=== PATIENT | female | born 1940 | race Caucasian/White ===

== ENCOUNTER 2018-08-07 17:24 | Inpatient (IN) | payer MEDICARE, BC ==
[2018-08-07] MEDS ORDERED: NS 0.9% 1000 ML** 1,000 ML IV ONE (21:22)
--- NOTE | 2018-08-07 21:33 | ED ---
Altered Mental Status - HPI Summary HPI Summary: Pt is a 77 y/o F presenting to the ED with a chief complaint of altered mental status. Per the pts daughter, she has been very fatigued since 08/05/18. Daughter states pt has been sleeping almost constantly since 08/05/18. She states she thought she was coming down with a cold because she had body aches and general fatigue. The pt currently denies fever, myalgia, CP, abd pain, N/V, urinary symptoms. The pts daughter reports the pt has had mild SOB with exertion and decreased appetite. She denies the pt having any one-sided weakness or facial droop. She also notes that she thought the pt's blood pressure was low earlier. Pt has hx of DE with a triple bypass surgery done in 1996, and DMII requiring insulin but she has not taken her insulin recently. She states her blood sugar has been normal recently but she did not check it today. Pt did not eat alot today. Vital signs while in room: HR 65bpm, SaO2 93% on room air, 25 respirations per minute, and BP of 130/72. - History Of Current Complaint Chief Complaint: EDGeneral Stated Complaint: LOW BLOOD PRESSURE/WEAKNESS PER PT Time Seen by Provider: 08/07/18 21:21 Hx Obtained From: Patient, Family/Servicer Travel Trailers - daughter Onset/Duration: Gradually Timing: Constant, Lasting Days Severity Initially: Mild Severity Currently: Mild Character: Lethargy Aggravating Factor(s): Nothing Alleviating Factor(s): Nothing Associated Signs And Symptoms: Positive: Negative - Allergies/Home Medications Allergies/Adverse Reactions: Allergies Allergy/AdvReac Type Severity Reaction Status Date / Time No Known Allergies Allergy Verified 08/07/18 17:37 Home Medications: Home Medications Aspirin EC TAB* [Ecotrin EC Low Dose 81 MG*] 81 mg PO DAILY 08/07/18 [History Confirmed 08/07/18] Atorvastatin* [Lipitor*] 40 mg PO DAILY 08/07/18 [History Confirmed 08/07/18] Blake/D3/Mag11/Zinc/Silviculture Teacher/Jaguar/Bor [Caltrate 600+D Plus] 1 tab PO DAILY 08/07/18 [ History Confirmed 08/07/18] Fenofibrate 40 mg PO DAILY 08/07/18 [History Confirmed 08/07/18] Glucosamine/D3/Boswellia Teresita [Osteo Bi-Flex Tablet] 1 each PO DAILY 08/07/18 [ History Confirmed 08/07/18] Insulin Degludec [Tresiba] 65 unit SQ QAM 08/07/18 [History Confirmed 08/07/18] Irbesartan/Hydrochlorothiazide [Irbesartan/Hydrochlorothi 150-12.5 mg] 1 tab PO DAILY 08/07/18 [History Confirmed 08/07/18] Liraglutide (NF) [Victoza (NF)] 8 mg SUBCUT QAM 08/07/18 [History Confirmed ] Metoprolol Tartrate TAB* [Lopressor TAB*] 25 mg PO BID 08/07/18 [History Confirmed 08/07/18] metFORMIN* [Glucophage 500 MG TAB *] 500 mg PO DAILY 08/07/18 [History Confirmed 08/07/18] PMH/Surg Hx/FS Hx/Imm Hx Previously Healthy: No Endocrine/Hematology History: Reports: Hx Diabetes - on insulin Cardiovascular History: Reports: Hx Coronary Artery Disease, Hx Myocardial Infarction, Other Cardiovascular Problems/Disorders - S/P CABG, 1996 History: Reports: Hx Renal Disease - Surgical History Surgical History: Yes Surgery Procedure, Year, and Place: triple bypass 1996, Infectious Disease History: No Infectious Disease History: Denies: Traveled Outside the [place] in Last 30 Days - Family History Known Family History: Positive: Cardiac Disease - Social History Lives: Alone Alcohol Use: None Hx Substance Use: No Substance Use Type: Reports: None Hx Tobacco Use: No Smoking Status (MU): Never Smoked Tobacco Review of Systems Positive: Fatigue Eyes: Negative ENT: Negative Negative: Chest Pain Positive: Shortness Of Breath - with exertion Negative: Abdominal Pain, Vomiting, Nausea Positive: no symptoms reported Negative: Myalgia Skin: Negative Neurological: Negative Psychological: Normal All Other Systems Reviewed And Are Negative: Yes Physical Exam - Summary Physical Exam Summary: Appearance: chronically ill-appearing, no pain distress, well-nourished, ambulatory Skin: Warm, color reflects adequate perfusion, dry Head: Normal Head/Face inspection, atraumatic Eyes: Conjunctiva clear, PERRL, EOMI, no nystagmus ENT: Normal inspection, No facial droop Neck: Supple, no nodes, no JVD Respiratory: Lungs clear, normal breath sounds, no respiratory distress Cardio: RRR, No murmur, pulses normal, brisk capillary refill, bigeminy on the monitor Abdomen: Soft, nontender Bowel sounds: Present Musculoskeletal: Strength Intact/ROM intact, no calf tenderness, no edema. Psychological: Normal Neuro: Alert, CN II-XII intact, Motor 5/5, muscle tone normal, Sensation intact , normal gait, no focal deficit Triage Information Reviewed: Yes Vital Signs On Initial Exam: Initial Vitals Temp Pulse Resp BP Pulse Ox 97.9 F 67 16 114/60 96 08/07/18 17:27 08/07/18 17:27 08/07/18 17:27 08/07/18 17:27 08/07/18 17:27 Vital Signs Reviewed: Yes - [place] Coma Scale Best Eye Response: 4 - Spontaneous Best Motor Response: 6 - Obeys Commands Best Verbal Response: 5 - Oriented Coma Scale Total: 15 Diagnostics - Vital Signs Vital Signs Temp Pulse Resp BP Pulse Ox 08/07/18 21:27 98.2 F 65 14 130/72 95 08/07/18 21:26 32 08/07/18 20:00 99.0 F 72 16 120/37 95 08/07/18 17:27 97.9 F 67 16 114/60 96 - Laboratory Lab Results: Lab Results 08/07/18 Range/Units 17:41 POC Glucose (mg/dL) 231 H (70-100) mg/dL Result Diagrams: 08/07/18 21:34 08/07/18 21:34 Lab Statement: Any lab studies that have been ordered have been reviewed, and results considered in the medical decision making process. - Radiology CXR Radiology Interpretation Completed By: ED Physician Summary of Radiographic Findings: poor inspiration, NAD. Pending official radiology report. - EKG 2121 Cardiac Rate: NL - 104 ST Segment: Non-Specific Ectopy: PVCs EKG Comparison: Other - no comparison Summary of EKG Findings: SR, nl AVIVCT, nl QTc, ventricular bigeminy, nonspecific ST-T wave changes, Not a STEMI. ED physician read and interpreted the EKG. 2302 Cardiac Rate: NL - 76 EKG Rhythm: Sinus Rhythm ST Segment: Non-Specific Ectopy: PVCs - ventricular bigeminy EKG Comparison: No Significant Change - c/w 2121 today Summary of EKG Findings: SR, nl AVIVCT, nl QTc, nonspecific ST-T wave changes, ventricular bigeminy, not a STEMI. ED physician read and interpreted the EKG. Re-Evaluation - Re-Evaluation First Eval Re-Evaluation Time: 22:45 Change: Unchanged Comment: Pt alert, coherent, denies chest pain, SOB. Daughter with pt. Both advised that pt will be admitted for further evaluation. Altered Mental Statu Course/Dx - Course Course Of Treatment: Pt is a 77 y/o F presenting to the ED with a chief complaint of altered mental status. Per the pts daughter, she has been very fatigued since 08/05/18, and has been sleeping alot. She states she thought she was coming down with a cold because she had bodyaches and general fatigue. The pt currently denies fever, myalgia, CP, abd pain, N/V, urinary symptoms. The pt s daughter reports the pt has had mild SOB with exertion and decreased appetite. She denies the pt having any one-sided weakness or facial droop. Pt has hx of DE with a triple bypass surgery done in 1996, and DM II requiring insulin, but she has not taken her insulin recently. She states her blood sugar has been normal recently. Vital signs while in room: HR 65bpm, SaO2 93% on room air, 25 respirations per minute, and BP of 130/72. CXR is poor inspiration , NAD. EKG at 2149 shows sinus tachycardia at 104bpm, nml AV/IV CT, nml QTc, and nml axis. Pt is in ventricular bigeminy. ED MD has reviewed and interpreted this EKG. Second EKG is SR, not a STEMI, ventricular trigeminy ED MD has reviewed and interpreted this EKG. Troponin is 0.12, verified by lab. Pt was given ASA 324mg po chewable x 1. Pt is admitted to Dr. Vanegas for further evaluation. - Diagnoses Differential Diagnosis/HQI/PQRI: CVA, Intracranial Bleed, Medication Reaction, Metabolic Disorder, TIA, Other - DE, UTI Provider Diagnoses: Ventricular bigeminy, Altered mental status, Poorly controlled diabetes mellitus, NSTEMI (non-ST elevated myocardial infarction), CKD (chronic kidney disease) stage 3, GFR 30-59 ml/min, Hyponatremia, Transaminitis - Provider Notifications Discussed Care Of Patient With: Emma Vanegas Time Discussed With Above Provider: 23:00 Instructed by Provider To: Admit As Observation - Critical Care Time Critical Care Time: 30-74 min - 30 mins Discharge - Sign-Out/Discharge Documenting (check all that apply): Patient Departure - Discharge Plan Condition: Stable Disposition: ADMITTED TO [facility] Referrals: Roni Saavedra MD [Primary Care Provider] - - Billing Disposition and Condition Condition: STABLE Disposition: Admitted to [facility] - Attestation Statements Document Initiated by Scribe: Yes Documenting Scribe: Katherine Mason Provider For Whom Nitin is Documenting (Include Credential): Dr. Shannen Gregg MD. Scribe Attestation: Katherine Blackwell scribed for Dr. Shannen Gregg MD. on 08/07/18 at 2334. Scribe Documentation Reviewed: Yes Provider Attestation: The documentation as recorded by the scribe, Katherine Mason accurately reflects the service I personally performed and the decisions made by me, Dr. Shannen Gregg MD. Status of Scribe Document: Viewed
[2018-08-07 21:42] LABS: ABS Lymphocytes 0.6 10^3/ul (1.0-4.8); ABS Monocytes 0.5 10^3/ul (0-0.8); ABS Neutrophils 5.1 10^3/ul (1.5-7.7); Hematocrit 43 % (35-47); Hemoglobin 14.3 g/dL (12.0-16.0); Lymphocyte % 9.3 %; Mean Corpuscular HGB Conc 33 g/dL (31-36); Mean Corpuscular Hemoglobin 27 pg (27-31); Mean Corpuscular Volume 80 fL (80-97); Mean Platelet Volume 7.8 fL (7.4-10.4); Nucleated Red Blood Cells % 0.1; Platelet Count 163 10^3/uL (150-450); Red Cell Distribution Width 19 % (10-15); White Blood Count 6.2 10^3/uL (3.5-10.8)
[2018-08-07 21:51] LABS: Activated Partial Thrombo Time 32.7 seconds (26.0-38.0); INR 1.08 (0.82-1.09)
[2018-08-07 22:01] LABS: ALT 53 U/L (7-52); AST 77 U/L (13-39); Albumin 3.6 g/dL (3.2-5.2); Albumin/Globulin Ratio 1.1 (1-3); Alkaline Phosphatase 35 U/L (34-104); Anion Gap 10 mmol/L (2-11); BUN/Creatinine Ratio 34.1 (8-20); Blood Urea Nitrogen 57 mg/dL (6-24); CO2 Carbon Dioxide 24 mmol/L (22-32); Calcium 9.8 mg/dL (8.6-10.3); Chloride 98 mmol/L (101-111); Creatine Kinase 113 U/L (10-223); EGFR African American 35.9 (>60); EGFR Non-African American 29.7 (>60); Globulin 3.2 g/dL (2-4); Glucose 198 mg/dL (70-100); Magnesium 2.3 mg/dL (1.9-2.7); Sodium 132 mmol/L (135-145); Total Protein 6.8 g/dL (6.4-8.9)
[2018-08-07 22:07] LABS: Troponin I 0.12 ng/mL (<0.04)
[2018-08-07 22:20] LABS: Urine Appearance Cloudy; Urine Bacteria 1+ (Absent); Urine Bilirubin Negative (Negative); Urine Blood 1+ (Negative); Urine Color Yellow; Urine Glucose Negative (Negative); Urine Ketones Negative (Negative); Urine Nitrite Negative (Negative); Urine Protein Negative (Negative); Urine Red Blood Cell 2+(6-10/hpf) (Absent); Urine Specific Gravity 1.023 (1.010-1.030); Urine Squamous Epithelial Cell Present (Absent); Urine Urobilinogen Negative (Negative); Urine White Blood Cell Trace(0-5/hpf) (Absent)
[2018-08-07 22:27] LABS: TSH (Thyroid Stimulating Horm) 1.55 mcIU/mL (0.34-5.60)
[2018-08-07] MEDS ORDERED: Aspirin 81 mg CHEW TAB* 81 MG TAB.CHEW PO ONE (23:21)
[2018-08-07 23:25] LABS: C Reactive Protein 79.74 mg/L (<8.01)
[2018-08-07] MEDS ORDERED: Acetaminophen TAB* 325 MG PO PRN (23:44)
[2018-08-07] MEDS ORDERED: NS 0.9% 1000 ML** 1,000 ML IV SCH (23:45)
[2018-08-07] MEDS ORDERED: Dextrose 50% Syringe 50 ML* 25 GM/50 ML SYRINGE IV PUSH PRN (23:48)
--- NOTE | 2018-08-08 01:31 | HP ---
CC: Dr. Saavedra; Dr. Goncalves; Dr. Mando Chandler * HISTORY AND PHYSICAL: DATE OF ADMISSION: 08/07/18 PRIMARY CARE PROVIDER: Dr. Roni Saavedra. NETWORK ENGINEER ADMINISTRATOR: Dr. Mando Chandler. GENERAL SERVICE OFFICER: Dr. Goncalves, [facility]. CHIEF COMPLAINT: Generalized weakness. HISTORY OF PRESENT ILLNESS: Ashtyn Brock is an 77-year-old female with history of coronary artery bypass grafting in 1996 and diabetes as well as chronic kidney disease who stated that for the past 3 days she had been feeling weak. She stated that her daughter just visited from [place] 2 days ago, and for the past 2 days, the patient had been not eating well and sleeping a lot. The patient herself stated that she experiences muscle aches which are generalized and generalized fatigue. She denies any chest pain or shortness of breath. She has no other symptoms. She stated that her exercise tolerance is poor, but not due to dyspnea, but due to her left knee osteoarthritic pain. Incidentally, it was found that the patient's troponin was 0.12. She is going to be placed on overnight observation with a diagnosis of elevated troponin. The patient also had an episode of ventricular bigeminy while she was placed on laboratory monitor upon arrival to the ED that resolved. The bigeminy was asymptomatic. PAST MEDICAL HISTORY: 1. History of coronary artery bypass grafting in 1996. 2. Diabetes. 3. Hypertension. 4. Chronic kidney disease, stage 3. 5. History of an episode of diverticulitis for which she was hospitalized in 2018 at [facility]. 6. History of . MEDICATIONS: Include: 1. Victoza 8 mg subcutaneously daily. 2. Insulin degludec 65 units daily. 3. Metformin 500 mg daily. 4. Metoprolol tartrate 25 mg b.i.d. 5. Fenofibrate 40 mg daily. 6. Caltrate 600 plus D plus 1 tablet daily. 7. Atorvastatin 40 mg daily. 8. Aspirin 81 mg daily. 9. Irbesartan/hydrochlorothiazide 150/12.5 one tablet daily. 10. Glucosamine 1 tablet daily. ALLERGIES: No known drug allergies. FAMILY HISTORY: Positive for father who had history of heart disease and in his 60s of congestive heart failure. SOCIAL HISTORY: The patient denies any tobacco, alcohol, or drug use. She lives independently and alone. Her daughter from [place], who is currently visiting, is her surrogate and her name is Inez Sparks. Daughter's phone number is [phone]. The patient stated that her close to a year ago. REVIEW OF SYSTEMS: Please see history of present illness. In addition to the above mentioned, the patient stated that she rarely works outdoors. She denies any problems with exercise intolerance apart from the problem with left knee pain. She denies any chest pain or shortness of breath. She has been afebrile. She stated that she has been under significant amount of stress; since her daughter's arrival, she is beginning to try to figure out what to do with the house and his truck and the anniversary of his is coming up. All the remaining 12 systems were reviewed with the patient and were otherwise negative. PHYSICAL EXAMINATION GENERAL: The patient is a pleasant 77-year-old female who is in no acute distress, alert, awake, and oriented x3. VITAL SIGNS: Blood pressure of 124/65, heart rate of 71 and regular, respiratory rate 36, oxygen saturation 97% on room air, temperature of 98.2. HEENT: Head atraumatic and normocephalic. Eyes: Pupils are equal, round, and reactive to light and accommodation. Oropharynx clear. Mucosa moist. NECK: Supple. No JVD, no bruits bilaterally. RESPIRATORY: Clear to auscultation bilaterally. CARDIOVASCULAR: Regular rate and rhythm. No murmur. ABDOMEN: Soft and nontender. Bowel sounds present in all 4 quadrants. EXTREMITIES: There is no edema. Pulses are +2 bilaterally. No clubbing or cyanosis. NEURO EVALUATION: Speech clear. Cranial nerves II through XII grossly intact. Motor strength is 5/5 bilaterally. SKIN: On evaluation of the skin, no ecchymotic areas or rashes noted. LABORATORY DATA: Showed white blood cell count of 6.2, hemoglobin of 14.3, hematocrit of 43, and platelets of 163. Sodium of 132, potassium 4.0, chloride 98, carbon dioxide 24, BUN 57, creatinine 1.67. Liver function tests were mildly elevated with total bilirubin 0.7, AST of 77, ALT of 53, alkaline phosphatase of 35. Troponin of 0.12. C-reactive protein of 79. Brain natriuretic peptide was 365. Lactic acid of 1.5. TSH was 1.55. Urinalysis; +2 rbc's, +1 bacteria, negative for nitrite and esterase. Initial EKG showed ventricular bigeminy. A second EKG continued to show ventricular bigeminy. Currently, the patient is on laboratory monitor bed and she is in sinus rhythm. Brain CT, impression: "Age related diffuse cerebral and cerebellar volume loss and chronic microvascular ischemic disease. No acute intracranial pathology." Portable chest x-ray reviewed by myself prior to official radiologist's report showed possibility of mild left lobe congestion. The right hilar region is more pronounced. We are awaiting official radiologist's report for more information. ASSESSMENT AND PLAN: 1. Mild elevation of troponin in patient with generalized weakness. The patient appears mildly dehydrated and I suspect that her mild elevation of LFTs and hyponatremia is due to prerenal state. She is going to be placed on gentle intravenous hydration. I will repeat her troponin in the morning. We will obtain chest x-ray and echocardiogram to evaluate the patient's heart function. At this point, until her echo comes back, I do not think of ordering cardiac stress test. The patient may have takotsubo syndrome. 2. For patient's diabetes, the patient is going to be placed on insulin Lantus of 5 units daily with insulin sliding scale. Oral hypoglycemias are going to be held. 3. For hypertension, the patient's metoprolol is going to be continued. 4. The patient has elevated creatinine. The patient has history of chronic kidney disease. I suspect her creatinine ____ baseline. We will continue monitoring it throughout the hospital stay. 5. The patient's code status is full. Her surrogate is her daughter. TIME SPENT: Approximately 55 minutes was spent on the admission of this patient , more than half the time was spent [id number] with the patient during the interview and physical exam. [id number]/[facility] #: [id number] WENDY
[2018-08-08] MEDS: Insulin GLARGINE(*) 1 UNITS UNIT SUBCUT SCH (01:41)
[2018-08-08] MEDS: Heparin VIAL(*) 5000 UNITS/ML VIAL (FIVE THOUSAND) SUBCUT SCH ×3 (06:16→20:28)
[2018-08-08 07:00] LABS: ABS Lymphocytes 0.3 10^3/ul (1.0-4.8); ABS Monocytes 0.3 10^3/ul (0-0.8); Hematocrit 38 % (35-47); Hemoglobin 12.7 g/dL (12.0-16.0); Lymphocyte % 4.9 %; Mean Corpuscular HGB Conc 34 g/dL (31-36); Mean Corpuscular Hemoglobin 27 pg (27-31); Mean Corpuscular Volume 79 fL (80-97); Mean Platelet Volume 7.7 fL (7.4-10.4); Platelet Count 133 10^3/uL (150-450); Red Blood Count 4.79 10^6 /uL (3.70-4.87); Red Cell Distribution Width 19 % (10-15); White Blood Count 5.6 10^3/uL (3.5-10.8)
[2018-08-08 07:19] LABS: Troponin I 0.07 ng/mL (<0.04)
[2018-08-08 07:21] LABS: ALT 52 U/L (7-52); AST 75 U/L (13-39); Albumin 3.1 g/dL (3.2-5.2); Albumin/Globulin Ratio 1.1 (1-3); Alkaline Phosphatase 33 U/L (34-104); Anion Gap 8 mmol/L (2-11); BUN/Creatinine Ratio 43.3 (8-20); Blood Urea Nitrogen 52 mg/dL (6-24); CO2 Carbon Dioxide 22 mmol/L (22-32); Calcium 8.6 mg/dL (8.6-10.3); Chloride 104 mmol/L (101-111); EGFR African American 52.6 (>60); EGFR Non-African American 43.4 (>60); Globulin 2.8 g/dL (2-4); Glucose 213 mg/dL (70-100); Indirect Bilirubin 0.3 mg/dL (0.3-1.0); Potassium 3.8 mmol/L (3.5-5.0); Sodium 134 mmol/L (135-145); Total Protein 5.9 g/dL (6.4-8.9)
[2018-08-08] MEDS ORDERED: Perflutren Lipid Microsphere* 3 ML VIAL ONE (08:08)
[2018-08-08] MEDS: Atorvastatin* 40 MG TAB PO SCH (08:37)
[2018-08-08] MEDS: Aspirin EC TAB* 81 MG TAB.EC PO SCH (08:37)
[2018-08-08] MEDS: Metoprolol Tartrate TAB* 25 MG PO SCH ×2 (08:37→20:28)
[2018-08-08] MEDS: Insulin LISPRO* 1 UNITS UNIT SUBCUT SCH ×4 (08:39→20:23)
--- NOTE | 2018-08-08 09:45 | ECHO ---
*[facility]* [place] [address] Fax #: [phone] Transthoracic Echocardiogram Patient: Vinod, Height: 65 in / Ashtyn 165.1 cm : 1940 Weight: 166.7 lb / Study Date: 08/08/2018 75.8 kg Age: 77 BP: 99 / 34 Gender: F BMI/BSA: 27.8 kg/m^2 HR: 74 bpm / 1.83 m^2 *Manufacturing Plant Controller: * Aida Juarez RD *Referring Physician: Emma Burciaga *Reading Physician: * Sunday Ramos MD Indications: CAD [place] Vessel. History: Chronic kidney disease stage III. Coronary artery disease. Risk factors: Diabetes mellitus. Labs, prior tests, procedures, and surgery: Coronary artery bypass grafting. Conclusions Summary: 1. Left ventricle: Systolic function is normal. The estimated ejection fraction is 55-60%. Wall motion is normal; there are no regional wall motion abnormalities. 2. Mitral valve: There is trivial regurgitation. 3. Aortic valve: There is no evidence of stenosis. 4. Tricuspid valve: There is trivial regurgitation. 5. Pericardium, extracardiac: There is no pericardial effusion. 6. Study data: No prior study is available for comparison. Study data: Transthoracic echocardiogram. Procedure: Transthoracic echocardiography was performed. Image quality was fair. Intravenous Definity , 3 mlswas administered. Complete 2D, spectral Doppler, and color flow Doppler. Patient status: Inpatient. Patient room number: 452. No prior study is available for comparison. Rhythm: Normal sinus rhythm with PVC's. Findings Left ventricle: The cavity size is normal. Wall thickness is normal. Systolic function is normal. The estimated ejection fraction is 55-60%. Wall motion is normal; there are no regional wall motion abnormalities. Left ventricular diastolic function parameters are indeterminate. Right ventricle: Well visualized. The cavity size is normal. Wall thickness is normal. Systolic function is normal. Ventricular septum: Well visualized. Left atrium: Well visualized. The atrium is normal in size. Right atrium: Well visualized. The atrium is normal in size. Atrial septum: Not well visualized. Mitral valve: Well visualized. The leaflets are mildly thickened. No echocardiographic evidence for prolapse. There is no evidence of stenosis. There is trivial regurgitation. Aortic valve: Well visualized. The valve is trileaflet. The leaflets are normal thickness. There is no evidence of stenosis. There is no significant regurgitation. Tricuspid valve: Well visualized. The leaflets are normal thickness. There is no evidence of stenosis. There is trivial regurgitation. Pulmonic valve: Well visualized. The leaflets are normal thickness. There is no evidence of stenosis. There is mild regurgitation. Aorta: The aorta is well visualized. Aortic arch: The aortic arch is appears normal. The aorta is normal. Pericardium: There is no pericardial effusion. No evidence of pleural fluid accumulation. Pulmonary arteries: Well visualized. Systemic veins: Not well visualized. Pulmonary veins: Visualization of the pulmonary venous anatomy is incomplete, but a significant abnormality is unlikely. Measurements Left ventricle Value Ref Aortic valve Value Ref MARC, LAX 4.5 cm 3.8 - Pk diam, ED 1.9 cm ---- 5.2 Pk diam/bsa, ED 1.1 cm/m^2 ---- ESD, LAX (H) 3.8 cm 2.2 - Peak v, S 1.32 m/sec ---- 3.5 VTI, S 30.7 cm ---- FS, LAX (L) 15 % 45 Mean grad, S 5.0 mm Hg ---- PW, ED, LAX 0.9 cm 0.6 - Peak grad, S 7.0 mm Hg ---- 0.9 LVOT/AV, VTI ratio 0.72 ---- FS (L) 15 % - 45 Mid-wall FS 8 % ------- Mitral valve Value Ref PW, ED 0.9 cm 0.6 - Peak E 0.83 m/sec ---- 0.9 Peak A 0.91 m/sec ---- PW/ID, ED 0.19 ------- Decel time 222 ms ---- E', lat pk, TDI 10.9 cm/sec >=10.0 Peak grad, D 2.8 mm Hg --- - E/e', lat pk, TDI 8 ------- Peak E/A ratio 0.9 ---- E', med pk, TDI 10.5 cm/sec >=7.0 E/e', med pk, TDI 8 ------- Pulmonic valve Value Ref E', avg, TDI 10.7 cm/sec ------- Peak v, S 0.96 m/sec ---- E/e', avg, TDI 8 <=14 Peak grad, S 4.0 mm Hg --- - LVOT Value Ref Aortic root Value Ref Peak mehul, S 1.06 m/sec ------- Root diam 3.0 cm <4.0 VTI, S 22.2 cm ------- Root max diam, ED 3.0 cm <4.0 Mean grad, S 2 mm Hg ------- Ascending aorta Value Ref Ventricular septum Value Ref AAo AP diam, S 3.4 cm ---- IVS, ED (H) 1.0 cm 0.6 - AAo AP diam/bsa, S 1.9 cm/m^2 ---- 0.9 Aortic arch Value Ref Right ventricle Value Ref Arch diam 3.6 cm ---- MARC, LAX 2.8 cm ------- Decending aorta Value Ref Left atrium Value Ref Aixa peak mehul 0.74 m/sec ---- ML dim, A4C 3.4 cm ------- SI dim, A4C 5.4 cm ------- Vol/bsa, ES, 1-p 29 ml/m^2 11 - 40 A4C Vol/bsa, ES, A/L 27 ml/m^2 16 - 34 Right atrium Value Ref SI dim, ES (H) 5.4 cm 3.4 - 5.3 ML dim, ES, A4C 3.3 cm 2.6 - 4.4 SI dim, ES, A4C (H) 5.4 cm 3.4 - 5.3 SI dim/bsa, ES, A4C 2.9 cm/m^2 1.9 - 3.1 Legend: (L) and (H) mat values outside specified reference range. Prepared and electronically signed by Sunday Ramos MD 08/08/2018 09:44
[2018-08-08] MEDS: NS 0.9% 1000 ML** 1,000 ML IV SCH ×2 (11:27→20:06)
[2018-08-08] MEDS ORDERED: NS 0.9% 1000 ML** 1,000 ML IV ONE (14:48)
--- NOTE | 2018-08-08 20:16 | PN ---
Subjective Date of Service: 08/08/18 Interval History: HOSPITALIST PROGRESS NOTE Patient seen and examined at bedside. Care reviewed and d/w Margarito Edwards RN. She feels a little better today. No N/V, but 2 episodes of diarrhea today. Low grade temperature and malaise persist. Family History: Unchanged from Admission Social History: Unchanged from Admission Past Medical History: Unchanged from Admission Objective Active Medications: Acetaminophen (Tylenol Tab*) 650 mg PO Q4H PRN PRN Reason: FEVER/PAIN Last Admin: 08/08/18 08:37 Dose: 650 mg Aspirin (Aspirin Ec Tab*) 81 mg PO DAILY [facility] Last Admin: 08/08/18 08:37 Dose: 81 mg Atorvastatin Calcium (Lipitor*) 40 mg PO DAILY [facility] Last Admin: 08/08/18 08:37 Dose: 40 mg Dextrose (D50w Syringe 50 Ml*) 12.5 gm IV PUSH .FOR FS < 60 - SS PRN PRN Reason: FS < 60 Heparin Sodium (Porcine) (Heparin Vial(*)) 5,000 units SUBCUT Q8HR [facility] Last Admin: 08/08/18 15:29 Dose: 5,000 units Sodium Chloride (Ns 0.9% 1000 Ml) 1,000 mls @ 75 mls/hr IV PER RATE [facility] Last Admin: 08/08/18 20:06 Dose: 75 mls/hr Insulin Glargine (Lantus(*)) 5 units SUBCUT Q24H [facility] Last Admin: 08/08/18 01:41 Dose: 5 unit Insulin Human Lispro (Humalog*) 0 units SUBCUT ACHS [facility]; Protocol Last Admin: 08/08/18 17:30 Dose: Not Given Metoprolol Tartrate (Lopressor Tab*) 25 mg PO BID [facility] Last Admin: 08/08/18 08:37 Dose: 25 mg Selected Entries 08/08/18 08:53 Temperature 100.1 F Pulse Rate 73 Respiratory 20 Rate Blood Pressure 112/49 (mmHg) O2 Sat by Pulse 94 Oximetry Oxygen Devices in Use Now: None Appearance: Pleasant elderly lady lying in bed in NAD Eyes: No Scleral Icterus Ears/Nose/Mouth/Throat: Mucous Membranes Moist Neck: Trachea Midline Respiratory: Symmetrical Chest Expansion and Respiratory Effort, Clear to Auscultation Cardiovascular: RRR - Normal S1 and S2 Abdominal: NL Sounds; No Tenderness; No Distention Extremities: No Edema Neurological: Alert and Oriented x 3, NL Muscle Strength and Tone Result Diagrams: 08/08/18 06:45 08/08/18 06:45 Assess/Plan/Problems-Billing Assessment: Mrs Brock is a 77yo F with PMH of CAD s/p CABG 1996, type 2 DM, HTN, CKD stage 3, diverticulitis in 2018; who presented to ED with c/o weakness, found to have mild troponin elevation. - Patient Problems (1) Troponin level elevated Comment: - Mild troponin elevation, likely secondary to demand ischemia. - Echo showed EF 55-60%, with no wall motion abnormalities. - Will benefit of stress test as outpatient. (2) Malaise and fatigue Comment: - She still feels weak and has low grade temperature. - GI symptoms could suggest a viral gastroenteritis. - Has prior h/o diverticulitis last year - check CT abd/pelvis. - Check stook w/u. (3) Dehydration Comment: - Improving - continue gentle IV hydration until PO intake improves. (4) Type 2 diabetes mellitus Comment: - Continue Lantus and Lispro SS. (5) DVT prophylaxis Comment: - SQ heparin. (6) Full code status Status and Disposition: Change to inpatient.
[2018-08-09] MEDS: Insulin GLARGINE(*) 1 UNITS UNIT SUBCUT SCH ×2 (01:19→23:47)
[2018-08-09] MEDS: Heparin VIAL(*) 5000 UNITS/ML VIAL (FIVE THOUSAND) SUBCUT SCH ×3 (05:54→21:29)
[2018-08-09 07:35] LABS: ABS Lymphocytes 0.8 10^3/ul (1.0-4.8); ABS Monocytes 0.5 10^3/ul (0-0.8); ABS Neutrophils 2.8 10^3/ul (1.5-7.7); Eosinophil % 1.1 %; Hematocrit 32 % (35-47); Mean Corpuscular HGB Conc 34 g/dL (31-36); Mean Corpuscular Hemoglobin 27 pg (27-31); Mean Corpuscular Volume 79 fL (80-97); Mean Platelet Volume 8.2 fL (7.4-10.4); Platelet Count 129 10^3/uL (150-450); Red Blood Count 4.12 10^6 /uL (3.70-4.87); Red Cell Distribution Width 18 % (10-15); White Blood Count 4.1 10^3/uL (3.5-10.8)
[2018-08-09] MEDS: Insulin LISPRO* 1 UNITS UNIT SUBCUT SCH ×4 (07:35→21:44)
[2018-08-09 07:48] LABS: Albumin 2.7 g/dL (3.2-5.2); Albumin/Globulin Ratio 1.1 (1-3); BUN/Creatinine Ratio 34.4 (8-20); C Reactive Protein 98.72 mg/L (<8.01); Calcium 8.5 mg/dL (8.6-10.3); EGFR African American 70.6 (>60); EGFR Non-African American 58.3 (>60); Globulin 2.5 g/dL (2-4); Potassium 3.7 mmol/L (3.5-5.0); Total Bilirubin 0.4 mg/dL (0.2-1.0); Total Protein 5.2 g/dL (6.4-8.9)
[2018-08-09] MEDS: Atorvastatin* 40 MG TAB PO SCH (08:27)
[2018-08-09] MEDS: Metoprolol Tartrate TAB* 25 MG PO SCH ×2 (08:27→21:29)
[2018-08-09] MEDS: Aspirin EC TAB* 81 MG TAB.EC PO SCH (08:27)
[2018-08-09 08:43] LABS: Hepatitis B Surface Antigen Negative (Negative)
[2018-08-09 09:00] LABS: Hepatitis C Antibody Negative (Negative)
--- NOTE | 2018-08-09 11:48 | PN ---
Subjective Date of Service: 08/09/18 Interval History: HOSPITALIST PROGRESS NOTE Patient seen and examined at bedside. Care reviewed and d/w Margarito Edwards RN. She feels better today. Still has one episode of diarrhea this AM, but denies N/ V, appetite has returned. Denies abdominal pain. Family History: Unchanged from Admission Social History: Unchanged from Admission Past Medical History: Unchanged from Admission Objective Active Medications: Acetaminophen (Tylenol Tab*) 650 mg PO Q4H PRN PRN Reason: FEVER/PAIN Last Admin: 08/08/18 08:37 Dose: 650 mg Aspirin (Aspirin Ec Tab*) 81 mg PO DAILY [facility] Last Admin: 08/09/18 08:27 Dose: 81 mg Atorvastatin Calcium (Lipitor*) 40 mg PO DAILY [facility] Last Admin: 08/09/18 08:27 Dose: 40 mg Dextrose (D50w Syringe 50 Ml*) 12.5 gm IV PUSH .FOR FS < 60 - SS PRN PRN Reason: FS < 60 Heparin Sodium (Porcine) (Heparin Vial(*)) 5,000 units SUBCUT Q8HR [facility] Last Admin: 08/09/18 05:54 Dose: 5,000 units Insulin Glargine (Lantus(*)) 5 units SUBCUT Q24H [facility] Last Admin: 08/09/18 01:19 Dose: 5 unit Insulin Human Lispro (Humalog*) 0 units SUBCUT ACHS [facility]; Protocol Last Admin: 08/09/18 07:35 Dose: Not Given Metoprolol Tartrate (Lopressor Tab*) 25 mg PO BID [facility] Last Admin: 08/09/18 08:27 Dose: 25 mg Vital Signs - 8 hr 08/09/18 07:40 Temperature 99.3 F Pulse Rate 18 Respiratory 18 Rate Blood Pressure 108/50 (mmHg) O2 Sat by Pulse 98 Oximetry Oxygen Devices in Use Now: None Appearance: Elderly lady lying in bed in NAD. Eyes: No Scleral Icterus Ears/Nose/Mouth/Throat: Mucous Membranes Moist Neck: Trachea Midline Respiratory: Symmetrical Chest Expansion and Respiratory Effort, Clear to Auscultation Cardiovascular: RRR - Normal S1 and S2 Abdominal: NL Sounds; No Tenderness; No Distention Extremities: No Edema Neurological: Alert and Oriented x 3, NL Muscle Strength and Tone Result Diagrams: 08/09/18 07:00 08/09/18 07:00 Assess/Plan/Problems-Billing Assessment: Mrs Brock is a 77yo F with PMH of CAD s/p CABG 1996, type 2 DM, HTN, CKD stage 3, diverticulitis in 2018; who presented to ED with c/o weakness, found to have mild troponin elevation. - Patient Problems (1) Troponin level elevated Comment: - Mild troponin elevation, likely secondary to demand ischemia. - Echo showed EF 55-60%, with no wall motion abnormalities. - Will benefit of stress test as outpatient. (2) Malaise and fatigue Comment: - She still feels weak and has low grade temperature. - GI symptoms could suggest a viral gastroenteritis. - Has prior h/o diverticulitis last year - check CT abd/pelvis. - Check stook w/u. (3) Pelvic cyst Comment: - CT abd/pelvis shows prominent lymph nodes in the abdome, with a 6.5cm cystic lesion in the right pelvis. - When further questioned, patient states she knew about the lesion, but " biopsy done at [facility] showed no fluid". - Records from [facility] reviewed - she was admitted in 2017 with abdominal pain , intially found to have diverticulitis with suspected abscess and possible colouterine/vaginal fistula. Later on, there was concern for possible endometrial and ovarian malignancies. Aspiration was attempted, but no fluid was drained. CA 19.9 was elevated. She left AMA and did not f/u with STAFFING CLERK as outpatient. - Oncology consult requested - will probably require another biopsy. (4) Anemia Comment: - Hb dropped from 14 to 11 since admission, with no evidence of bleeding. - Suspect this drop is dilutional in the setting of IV hydration. - Continue to monitor. (5) Dehydration Comment: - Resolved. - D/c IVF and encourage PO intake. (6) Type 2 diabetes mellitus Comment: - Continue Lantus and Lispro SS. (7) DVT prophylaxis Comment: - SQ heparin. (8) Full code status Status and Disposition: Inpatient.
--- NOTE | 2018-08-09 23:26 | CONS ---
CC: Dr. Roni Saavedra * MEDICAL ONCOLOGY CONSULTATION NOTE: DATE OF CONSULT: 08/07/18 REASON FOR CONSULTATION: Question pelvic mass. HISTORY OF PRESENT ILLNESS: Ashtyn Brock is a 77-year-old female with a history of underlying coronary artery disease, status post coronary artery bypass grafting in 1996 along with chronic kidney disease and diabetes and hypertension. She reports that she has lived alone since her of liver cancer last summer. Her energy level has been extremely poor. She gets fatigued even just going shopping. Although she lives alone, her daughter does come here frequently and had just spent some time with her visiting from [place] several days previously. She reports her appetite has been decreased for a short period of time, but there is no associated weight loss, difficulty swallowing, heart burn, reflux, nausea, vomiting, change in bowel habits or any urinary symptoms. She reports she has developed some diarrhea since admission although it is better today, but did not have any of this at home. She is ambulatory at home, but extremely weak and fatigue with a very poor exercise tolerance. She denies any shortness of breath, chest pain or palpitations at home. She came to the emergency room here on 08/07/18. At that time, she had a chief complaint of an altered mental status. Daughter had noted to the emergency room physician that she had been mildly short of breath with exertion and did have a decreased appetite. Workup in the emergency room included a CT scan of the brain done without contrast, which revealed no significant abnormalities other than age related diffuse cerebral and cerebellar volume loss and chronic microvascular ischemic disease. Chest x-ray was also performed and revealed no active cardiopulmonary disease. The patient did have a mildly elevated troponin of 0.12 and was brought into the hospital for observation, was also found to have an episode of ventricular bigeminy, which was asymptomatic. Since admission, she has had further testing performed, which included a CT scan of the abdomen and pelvis on 08/08/18. This was done because of abdominal pain along with diarrhea and mildly elevated LFTs. It should be noted that her LFTs have improved between 08/07/18 and , specifically the transaminases. CT scan of the abdomen and pelvis on 08/08/18 revealed some increased lymph nodes in the upper abdomen. The most prominent is an enlarged gastrohepatic lymph node measuring 1.6 cm in short axis x 2.5 cm in long axis. Other normal size but fairly prominent lymph nodes are noted in portacaval region. In the pelvis, there is a 6.5 cm mostly cystic-appearing mass in the area of the right adnexa. No other significant abnormalities are noted on the CT scan other than a fibroid uterus. Because of this, the patient underwent a pelvic ultrasound today, which revealed some thickening of the endometrium. This shows one area of focal where it is thicker than expected, potentially with endometrial polyp although endometrial hyperplasia or even endometrial carcinoma cannot ruled out. In addition, there is a right prominent right ovary measuring 6.2 x 4.8 cm without a focal ovarian lesion. Most likely this is just a complex cyst, but this cannot be totally proven by just the ultrasound. The patient was hospitalized at [facility] in November of 2016. At that time, she reports that she had presented with abdominal pain and thinking she had gastritis. She was felt by the emergency room to have diverticulitis. She was seen in consultation by GI, Radiology, LACE PINNER, and ID. CT scan was performed and revealed an area of irregularity and wall thickening in the distal sigmoid colon with severe wall thickening nearby. There was a complex mass left of the sigmoid colon from which there was an attempt at aspiration, which was unsuccessful. She had multiple CT scans while there and it showed that the area just left of the sigmoid colon measured 5.8 x 4.0 cm similar in size to that seen on the current ultrasound. On the ultrasound from [place], in addition, there was some thickening and distention of an area of the uterus measuring 1.6 cm, similar to what is seen now and called most likely a pedunculated polyp at 2.3 cm. While in the hospital, it was recommended to her that she have further testing done including potentially a laparoscopy, she refused and signed out of the hospital AMA despite as reported in notes from [place], a long discussion with the hospitalist service and LACE PINNER strongly recommending that she undergo surgery. While in the hospital, she had a CA 19-9 and a CA 125 tumor marker checked. Neither one is particularly remarkable. CA 125 normal at 37.3 and CA 19-9 minimally elevated at 43, upper limit of normal at 35. Reportedly a CEA was done as well although I do not see those results. Subsequent to that admission, she has had no further abdominal pain until recently. She reports she has not had a pelvic exam performed in over 10 years' time. PAST MEDICAL HISTORY: Coronary artery bypass grafting in 1996, doing well since , seen by cardiology Dr. Chandler on a regular basis; diabetes mellitus; hypertension; stage 3 chronic kidney disease; history of . MEDICATIONS: 1. Victoza 8 mg subcutaneously daily. 2. Insulin 65 units daily. 3. Metformin 500 mg daily. 4. Metoprolol 25 mg b.i.d. 5. Fenofibrate 40 mg daily. 6. Caltrate 500 mg with D daily. 7. Atorvastatin 40 mg daily. 8. Aspirin 81 mg daily. 9. Irbesartan/hydrochlorothiazide 150/12.5 daily. 10. Glucosamine daily. ALLERGIES: None. FAMILY HISTORY: Father with heart disease in his 60s of congestive heart failure, has a sister and several brothers as well as a daughter. No family history of any malignancies that she is aware of. SOCIAL HISTORY: Smoked for a short time in her 20s, occasional alcohol but not recently. approximately 1 year ago of a metastatic liver cancer. She has been living alone since. 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 REVIEW OF SYSTEMS: Energy level has been poor. Appetite poor. No weight loss. No significant arthritic complaints. No significant back, pelvic or abdominal complaints. No significant changes in bowel or bladder habits until this admission. Extreme decrease in energy level and activity. No signs of infection. Denies any emotional issues. PHYSICAL EXAM: A 77-year-old female in no acute distress. Vital Signs: Blood pressure 102/52, pulse 59, T-max of 100.1. HEENT: PERRL. EOMI. No erythema or exudate. No scleral icterus. No thrush. No palpable cervical, supraclavicular, axillary or inguinal adenopathy. Lungs: Clear. Heart: Regular rate and rhythm without murmurs, rubs or gallops. Abdomen: Soft, nontender without masses or organomegaly. Extremities: No edema. Back: No CVA or spinal tenderness. Neurologic Exam: Without focal deficits. LABORATORY STUDIES: CBC: White count 4100, H and H 32/11.0, platelet count 129 ,000, essentially normal machine differential. Chemistry Studies: Sodium 138, potassium 3.7, chloride 109, bicarb 24, BUN 32, creatinine 0.93. Glucose 111. LFTs: AST 77, down to 55 since admission; ALT 53, down to 48 since admission; alk phos slightly low at 29; bilirubin normal at 0.4. Initial troponin 0.12 and now down to 0.07. Hepatitis studies are normal. IMPRESSION: A 77-year old female with recent weakness, fatigue, decreased appetite, and markedly decreased activity level. She has no abdominal or pelvic complaints that she is willing to offer at this time. CT scans are somewhat comparable to that obtained 2 years ago in November of 2016 in [place]. The area of abnormality along the right adnexa seemed similar in size to what was reported then. There has been some thickening in the uterus on both occasions. There was no report of increased lymph nodes in the upper abdomen on scans from that time, but we do not actually have the films to compare to. I am not sure how much of workup the patient will agree to and I am also not convinced there has been a significant changer fixer the past 2 years. It certainly would be reasonable to obtain her old films from 2016 and compare them to the current films. If there has been no significant change, there would certainly be no reason to do any biopsies or any further workup unless symptoms were to progress. In the absence of obtaining those films, then workup could/should include: 1. With the enlarged gastrohepatic lymph node, this is the among the most suspicious findings and would be suspicious for either upper GI or pancreatobiliary carcinoma at the current size. EGD would be warranted. 2. She has not had a pelvic exam in over 10 years, does have thickened endometrium. Endometrial biopsy at the time of the pelvic exam is certainly warranted along with evaluation by Gynecology. 3. Obtaining the results of her previous scans from [place] would help most in terms of evaluating the ovarian issue. Alternatively, one could obtain an MRI of the ovarian region to ascertain whether or not there is anything more worrisome than just a large somewhat complicated cyst. 4. Repeating her CA 19-9 and CEA and CA 125 would be reasonable, and if only minimally elevated or normal, this would provide some but not definitive reassurance. 5. It certainly would be reasonable for her to follow up with Dr. Saavedra or if she prefers with our office once we have the ultrasounds to compare to and make further decisions. [id number]/[facility] #: [id number] [facility]
[2018-08-10] MEDS: Heparin VIAL(*) 5000 UNITS/ML VIAL (FIVE THOUSAND) SUBCUT SCH (06:10)
[2018-08-10] MEDS: Insulin LISPRO* 1 UNITS UNIT SUBCUT SCH ×2 (08:38→13:37)
[2018-08-10] MEDS: Metoprolol Tartrate TAB* 25 MG PO SCH (11:28)
[2018-08-10] MEDS: Aspirin EC TAB* 81 MG TAB.EC PO SCH (11:28)
[2018-08-10] MEDS: Atorvastatin* 40 MG TAB PO SCH (11:28)
[2018-08-10 14:47] VITALS: BP 124/50
--- NOTE | 2018-08-11 01:55 | DS ---
CC: Dr. Roni Saavedra; Dr. Mando Chandler; Dr. Goncalves; Dr. Wyatt; Dr. Debbie Patricio * DISCHARGE SUMMARY: DATE OF ADMISSION: 08/07/18 DATE OF DISCHARGE: 08/10/18 PRIMARY CARE PROVIDER: Dr. Roni Saavedra. ADMINISTRATOR: Dr. Mando Chandler. MOVIE MACHINE OPERATOR: Dr. Goncalves, [facility]. CONSULTING ONCOLOGIST: Dr. Wyatt. PRINT COLOR MATCHER: Dr. Debbie Patricio. DISCHARGE DIAGNOSES: 1. Dehydration. 2. Probable viral gastroenteritis. 3. Mild troponin elevation. 4. Endometrial thickening concerning for endometrial hyperplasia versus endometrial malignancy. 5. Pelvic cyst. 6. Enlarged intraabdominal lymph nodes. 7. Anemia, likely delusional. SECONDARY DIAGNOSES: 1. Coronary artery disease, status post CABG in 1996. 2. Type 2 diabetes. 3. Diabetic nephropathy with chronic kidney disease, stage 3. 4. Hypertension. 5. Diverticulitis. 6. Status post . MEDICATIONS: 1. Aspirin 81 mg p.o. daily. 2. Atorvastatin 40 mg p.o. daily. 3. Calcium plus vitamin D one tablet p.o. daily. 4. Fenofibrate 40 mg p.o. daily. 5. Osteo Bi-Flex 1 tablet p.o. daily. 6. Victoza 8 mg subcutaneously daily. Continued medications: 1. Metformin 500 mg p.o. daily. 2. Metoprolol tartrate 25 mg p.o. b.i.d. Her insulin was discontinued for now as in the hospital the patient was taking only 5 units of Lantus and her glucose was controlled. Her p.o. intake has improved but not back to normal yet, I am concern that if she takes a full insulin dose, she would be hypoglycemic. She will need to follow up with her primary care provider to see when to resume her insulin. Irbesartan/hydrochlorothiazide was on the patient's medication list, but she states that she was not taking this medication because it was "recalled." HOSPITAL COURSE: Ms. Brock is a 77-year-old lady with the past medical history stated above who presented to the emergency room with complaints of generalized weakness. Her daughter came to visit over the weekend and she noted that the patient was not eating well, sleeping a lot, complaining of malaise, body aches and she decided to bring the patient to the emergency room for further evaluation. The patient is a very poor historian and it is difficult to know is actually when her symptoms started. For more details about her presentation, I refer you to her history and physical , dictated by Dr. Emma Vanegas. Her workup in the emergency room including a mild troponin elevation at 0.12 and this trended down. Of note, is the fact that patient had no complaints of chest pain and her EKG showed trigeminy, but no acute ischemic changes. The patient was admitted for further evaluation. The patient's trigeminy resolved after IV hydration. Regarding her mild troponin elevation, the patient had transthoracic echocardiogram that showed the ejection fraction of 55% to 60% with no regional wall motion abnormalities. I suspect this mild troponin elevation was likely secondary to demand ischemia in the setting of gastroenteritis and dehydration. The patient does have a history of coronary artery disease with CABG, more than 30 years ago and she would benefit of stress test as outpatient when her condition has improved. While in the hospital, the patient developed diarrhea and stool workup included stool that was positive for occult blood and negative for Shiga toxin. She was also found to be dehydrated with a creatinine of 1.6. She received IV fluid resuscitation with improvement of her renal function. Her hemoglobin was 14.3 on admission, likely representing hemoconcentration and it dropped to 11 while in the hospital and I believe this represents a dilutional drop. The story gets more complicated by the fact that the patient did describe she had an episode of diverticulitis in the past, but when records were obtained from [place], her stay at [place] was much more complicated than that. A CT of the abdomen and pelvis with p.o. contrast done at our facility showed prominent lymph nodes of the upper abdomen including a 1.6 cm lymph node in the gastrohepatic ligament. There was also a 6.5 cm cystic lesion of the right hemipelvis that would not be expected to be physiologic in a postmenopausal female. The patient also had a pelvic ultrasound that showed the thickened endometrium with potential endometrial polyp. Prominent right ovary measuring up to 6.2 x 2.1 x 4.8 cm and recommendation was for a contrast-enhanced MRI for further assessment of the right ovary with enlarged size. Probable 2.3 cm pedunculated polyp at the right fundal region. Records from [place] are from November 2016 when she presented with abdominal pain. She was initially admitted under the impression of diverticulitis and had extensive workup including GI, PEDIATRIC AUDIOLOGIST and ID consultation. A CT was performed and reviewed an area of irregularity and wall thickening in the distal sigmoid colon with severe wall thickening nearby. There was description of a complex mass left of the sigmoid colon. There was an attempt to take it out with aspiration, which was unsuccessful. As per her discharge summary, she was recommended to stay in the hospital to have further workup including a potential laparoscopy but the patient refused and signed out against medical advice and did not followup with Gynecology as outpatient. At that time, her CA 125 was normal and CA19-9 was elevated at 43 and the upper limit of normal is 45. The concern is that her symptoms are probably going on for some time and the visit of her daughter is what prompted the visit to the hospital, but may be her malaise would be associated with malignancy. She is at risk for a PEDIATRIC AUDIOLOGIST malignancy including endometrial/ovarian. The patient and her daughter were advised how important it is to follow up as outpatient to conclude her workup. I contacted Dr. Debbie Patricio, who gracefully accepted to see the patient as outpatient. She was also seen in consultation by Dr. Wyatt and the patient will follow up with him. He recommended the family to get the CD with the images from [place] , so that he can compare to see how the lesions have advanced over the past 2 years and also consideration could be given for an MRI of the ovarian region to better image the area. Another concern is that the patient could have a GI malignancy including upper GI or may be a pancreatobiliary carcinoma. The patient does not recall having an upper or lower endoscopy and her CEA was negative at 1.2. She is not interested in endoscopy or colonoscopy at this time and she does appear to be overwhelmed with abnormalities found so far. Her stool was positive for occult blood, but she does not appear to have any active bleeding at this time. Her blood pressure has been normal and as described above, she did have a drop in a hemoglobin from 14.3 to 11, but this is in the setting of dehydration, so I believe this hemoglobin of 14 most likely represents hemoconcentration and the drop on her hemoglobin most likely related to fluid resuscitation, but the patient is aware that she will need further GI workup as outpatient. I explained to the patient and her daughter that prominent gastrohepatic ligament lymph node is suspicious for a malignant process involving the area. With her history of CAD and this admission with mild troponin elevation, the patient will be continued on low-dose aspirin, but she would need to have her H and H monitored as outpatient to see if it continues to drop. On the day of discharge, the patient was in good spirits feeling much improved. The patient was able to tolerate diet. Denied nausea, vomiting or further episodes of diarrhea. Her daughter was present during our conversation and was surprised when she heard about the issue that had happened in [place]. The daughter states she was aware that the patient has been admitted with diverticulitis, but did not know about the patient leaving [place] and all the possible malignancy workup that had been performed. The patient was advised about the need for a speedy and thorough workup and she is aware that the patient will need to follow up with her primary care provider, Dr. Saavedra; with oncologist, Dr. Wyatt; with special services coordinator, Dr. Patricio. Eventually, she would also need to see a product development manager, but as stated above she states that she is not interested in colonoscopy at this time. I did contact Dr. Saavedra's office, but he is not available until after 06/03. I did talk to one of the nurses in his office and gave her update about the patient's hospital stay and need for this malignancy workup as outpatient. At the time of this dictation, the patient's CA19-9 and CA 125 levels are pending and they will need to be followed as outpatient. PHYSICAL EXAMINATION: Vital Signs: Temperature 98.0, heart rate 67, respiratory rate 16, oxygen saturation is 97% on room air, blood pressure is 124 /50. General: The patient is a pleasant, elderly lady, sitting up in the chair , in no acute distress. CVS: Normal S1, S2. Regular rate and rhythm. Chest: Breath sounds bilaterally with no added sounds. Abdomen: Soft. Bowel sounds are present. Extremities: No edema. Neurologic: She is alert and oriented x3. Able to move all 4 extremities. DIET: Consistent carb diet. ACTIVITIES: As tolerated. DISPOSITION: To home. STATUS WHILE IN THE HOSPITAL: Inpatient. CONDITION AT THE TIME OF DISCHARGE: Fair. The patient was advised to have a CBC done on 08/12/18 to assure H and H stability. She was educated above symptoms that would prompt her to return to the emergency room for further evaluation. TIME SPENT: Approximately 55 minutes was spent to complete this discharge. [id number]/[facility] #: [id number] [facility]
[2018-08-11 16:32] LABS: CA 19-9 32 U/mL (<35)
[2018-08-11 17:51] LABS: Cancer Ag (CA 125), S 29 U/mL (<46)
--- NOTE | 2018-08-12 21:38 | DS ---
CC: Dr. Saavedra. DISCHARGE SUMMARY: ADDENDUM: The patient did come to the hospital to have her H and H repeated and it was 10.05/15. I c ontacted the patient's daughter and the patient and she tells me that she is feeling well and had no more black stools, no nausea and no vomiting. She was advised about her test results and that she may need to have a GI workup sooner than we had talked about on her discharge. She does not feel that s he needs to return to the hospital at this time because she is feeling well, but she was advised that if she had return of her symptoms, if she sees black stools again or any other signs of bleeding, sh e should return to the emergency room for further evaluation and treatment. Dr. Saavedra is on vacation at this time and I had called his office initially and she has an appo intment scheduled for 08/19/18, but now I see that her anemia continues to worse, she may need to be seen sooner. So, I contacted the physician covering for Dr. Saavedra today, Dr. Bean Salmeron. He re-relayed the message to the office so the patient can be seen by one of Dr. Saavedra' physician assistants early next week. The patient is aware of the findings of enlarged lymph nodes on her CT a bdomen and that this could represent a GI malignancy. So she may need to expedite the GI workup incl uding a possible colonoscopy that initially she was not really interested in having. [facility] the test results. [id number] #: [id number]
== END 2018-08-10 14:20 | disposition home or self-care (01) | DRG 641 ==
LOC: ED 17:24 → MEDTELE 23:44 → OBSVTOIN 08-08 16:17
PROVIDERS: ADMIT Internal Medicine; ATTEND Internal Medicine
DX: E86.0 Dehydration (principal); I24.8 Other forms of acute ischemic heart disease; A08.4 Viral intestinal infection, unspecified; E87.1 Hypo-osmolality and hyponatremia; I25.10 Atherosclerotic heart disease of native coronary artery without angina pectoris; R40.2412 Glasgow coma scale score 13-15, at arrival to emergency department; N18.3 Chronic kidney disease, stage 3 (moderate); E11.65 Type 2 diabetes mellitus with hyperglycemia; E11.22 Type 2 diabetes mellitus with diabetic chronic kidney disease; I12.9 Hypertensive chronic kidney disease with stage 1 through stage 4 chronic kidney disease, or unspecified chronic kidney disease; R00.8 Other abnormalities of heart beat; D64.9 Anemia, unspecified; R59.0 Localized enlarged lymph nodes; E11.21 Type 2 diabetes mellitus with diabetic nephropathy; R79.89 Other specified abnormal findings of blood chemistry; Z87.891 Personal history of nicotine dependence; I25.2 Old myocardial infarction; Z95.1 Presence of aortocoronary bypass graft; Z82.49 Family history of ischemic heart disease and other diseases of the circulatory system; Z79.82 Long term (current) use of aspirin; R93.89 Abnormal findings on diagnostic imaging of other specified body structures; N94.89 Other specified conditions associated with female genital organs and menstrual cycle; Z79.84 Long term (current) use of oral hypoglycemic drugs
CPT/HCPCS: 36415; 70450; 71045; 74176; 76856; 80048; 80053; 80074; 80076; 81003; 81015; 82272; 82378; 82550; 82553; 83036; 83605; 83735; 83880; 84443; 84484; 85025; 85610; 85730; 86140; 86301; 86304; 86618; 87045; 87046; 87077; 87086; 87899; 93005; 93306; 99284; A9270-GY; C8929; G0378; G8978-GP-CI; G8979-GP-CH; J1644